=== PATIENT | male | born 1945 | race African-American/Black ===

== ENCOUNTER 2017-05-21 18:10 | Inpatient (IN) | payer MEDICARE, OTHER ==
[~2017-05-21 18:10] MED LIST: ALLO100 PO; AMLO10 PO; ATOR80TA PO; CLON.2 PO; DOCU1CAP39 PO; DORZ1SOL2 EACH EYE; DUONI NEB; FOLI1 PO; FURO1TAB93 PO; GABA600T PO; GLUCTAB PO; IPRA0.02 NEB; KCL20 PO; LATA.005%O OU; LISI-363 PO; MAGN400T PO; METO100T9 PO; NIFE1TAB86 PO; OMEP20TA39 PO; PSYL1POW7 PO; TERA2CAP3 PO; VITA-13 PO; VITA100020 SL; WARF7.5T4 PO; ZINC TOP
[2017-05-21 18:25] VITALS: BP 168/68; PULSE 98; RESP 16; TEMP 98.8; O2SAT 96
[2017-05-21] MEDS ORDERED: SODIUM CHLORIDE 0.9% FLUSH 10 ML FLUSH IVF PRN ×2 (18:45→21:00)
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
[2017-05-21] MEDS ORDERED: POTA10CA PO (19:02)
[2017-05-21] MEDS ORDERED: DORZ2SOL15 EACH EYE (19:02)
[2017-05-21] MEDS ORDERED: ALLO100T PO (19:02)
[2017-05-21] MEDS ORDERED: WARF-23 PO (19:02)
[2017-05-21] MEDS ORDERED: LISI-515 PO (19:02)
[2017-05-21] MEDS ORDERED: GABA600T PO (19:02)
[2017-05-21] MEDS ORDERED: FOLI400T PO (19:02)
[2017-05-21] MEDS ORDERED: WARF-21 PO (19:02)
[2017-05-21] MEDS ORDERED: AMLO5TAB2 PO (19:02)
[2017-05-21] MEDS ORDERED: METF500T4 PO (19:02)
[2017-05-21] MEDS ORDERED: IPRASOL INH (19:02)
[2017-05-21] MEDS ORDERED: CYAN100025 SL (19:02)
[2017-05-21] MEDS ORDERED: MAGN400T2 PO ×2 (19:02)
[2017-05-21] MEDS ORDERED: LATA0.002 EACH EYE (19:02)
[2017-05-21] MEDS ORDERED: FURO40TA PO (19:02)
[2017-05-21] MEDS ORDERED: TERA2CAP3 PO (19:02)
[2017-05-21] MEDS ORDERED: OMEP20TA PO (19:02)
[2017-05-21] MEDS ORDERED: METO50TA11 PO (19:02)
[2017-05-21] MEDS ORDERED: CLON0.2T PO (19:02)
[2017-05-21] MEDS ORDERED: METF-382 PO (19:02)
[2017-05-21] MEDS ORDERED: ATOR1TAB18 PO (19:02)
[2017-05-21 19:06] LABS: MEAN CELL VOLUME 116.6 FL (80.0-100.0); MEAN CORPUSCULAR HEMOGLOBIN 36.3 PG (27.0-34.0); MEAN CORPUSCULAR HGB CONC 31.1 % (32.0-36.0); PLATELET COUNT 133 TH/MM3 (150-450); RED BLOOD COUNT 2.23 MIL/MM3 (4.50-5.90); RED CELL DISTRIBUTION WIDTH 17.7 % (11.6-17.2)
--- NOTE | 2017-05-21 19:06 | RADRPT ---
EXAM DATE/TIME: 05/21/2017 18:57 [facility] COMPARISON: CHEST SINGLE AP, May 23, 2015, 10:43. INDICATIONS : Chest pain today. MEDICAL HISTORY : Hypertension. Chronic obstructive pulmonary disease. Crohn's disease. CVA/ Diabetes. Afib. SURGICAL HISTORY : Aortic valve replacment. AICD. ENCOUNTER: Initial ACUITY: 1 day PAIN SCORE: 7/10 LOCATION: Bilateral chest FINDINGS: The patient is status post sternotomy. There is a bilead pacing device in place from the left subclav santana approach. The heart size is normal. The lungs are grossly clear. CONCLUSION: No acute disease. Tawanda Cordero MD on May 21, 2017 at 19:04 Board Certified Radiologist. This report was verified electronically.
--- NOTE | 2017-05-21 19:08 | PD ---
Physical Exam Date Seen by Provider: May 21, 2017 Time Seen by Provider: 19:06 Narrative Accepted in transfer of care from Dr. Perry GENERAL: Well-developed well-nourished male in no acute distress no respiratory distress's SKIN: Warm and dry. HEAD: Normocephalic. EYES: No scleral icterus. No injection or drainage. NECK: Supple, trachea midline. No JVD or lymphadenopathy. CARDIOVASCULAR: Regular rate and rhythm without murmurs, gallops, or rubs; mechanical click c/w valve replacement. RESPIRATORY: Breath sounds equal bilaterally. No accessory muscle use. GASTROINTESTINAL: Abdomen soft, non-tender, nondistended. MUSCULOSKELETAL: No cyanosis, or edema. Bilateral AKA. BACK: Nontender without obvious deformity. No CVA tenderness. Data Data Last Documented VS Vital Signs Date Time Temp Pulse Resp B/P (MAP) Pulse Ox O2 Delivery O2 Flow Rate FiO2 05/21/17 19:35 88 18 163/56 (91) 95 Room Air 05/21/17 18:25 98.8 Orders Orders Electrocardiogram (05/21/17 18:43) Ckmb (Isoenzyme) Profile (05/21/17 18:43) Complete Blood Count With Diff (05/21/17 18:43) Comprehensive Metabolic Panel (05/21/17 18:43) Magnesium (Mg) (05/21/17 18:43) Prothrombin Time / Inr (Pt) (05/21/17 18:43) Act Partial Throm Time (Ptt) (05/21/17 18:43) Troponin I (05/21/17 18:43) Lipase (05/21/17 18:43) Chest, Single Ap (05/21/17 18:43) Ecg Monitoring (05/21/17 18:43) Bilateral Bp Monitoring (05/21/17 18:43) Iv Access Insert/Monitor (05/21/17 18:43) Oximetry (05/21/17 18:43) Oxygen Administration (05/21/17 18:43) Sodium Chloride 0.9% Flush (Ns Flush) (05/21/17 18:45) CKMB (05/21/17 18:40) CKMB% (05/21/17 18:40) Place In Observation (05/21/17 20:44) Activity Bed Rest With Brp (05/21/17 20:44) Vital Signs (Adult) Q4H (05/21/17 20:44) Cardiac Rhythm .As Directed (05/21/17 20:44) Notify Dr: Other .PRN (05/21/17 20:44) Notify Parameters (05/21/17 20:44) Resp Oxygen Nasal Cannula (05/21/17 ) Ckmb (Isoenzyme) Profile (05/21/17 21:40) Ckmb (Isoenzyme) Profile (05/22/17 00:40) Troponin I (05/21/17 21:40) Troponin I (05/22/17 00:40) Electrocardiogram (05/21/17 21:40) Electrocardiogram (05/22/17 00:40) ^ Obtain (05/21/17 20:44) Sodium Chloride 0.9% Flush (Ns Flush) (05/21/17 20:45) Sodium Chloride 0.9% Flush (Ns Flush) (05/21/17 21:00) Cinder Block Maker / Telemetry LILLIAN.Q8H (05/21/17 20:44) Admit Order (Ed Use Only) (05/21/17 ) ^ Saline Lock (05/21/17 20:47) Resp Oxygen Idris C Titrat 1-4 L (05/21/17 ) Notify Dr: Other (05/21/17 20:47) Npo After Midnight W/ Po Meds (05/22/17 Breakfast) Diet 1800 Ada Cons Carb (05/21/17 Dinner) CKMB (05/21/17 21:50) CKMB% (05/21/17 21:50) Labs Laboratory Tests Test 05/21/17 18:40 White Blood Count 3.3 TH/MM3 Red Blood Count 2.23 MIL/MM3 Hemoglobin 8.1 GM/DL Hematocrit 26.0 % Mean Corpuscular Volume 116.6 FL Mean Corpuscular Hemoglobin 36.3 PG Mean Corpuscular Hemoglobin Concent 31.1 % Red Cell Distribution Width 17.7 % Platelet Count 133 TH/MM3 Mean Platelet Volume 8.9 FL CBC Comment AUTO DIFF Differential Total Cells Counted 100 Neutrophils % (Manual) 46 % Band Neutrophils % 1 % Lymphocytes % 35 % Monocytes % 17 % Eosinophils % 1 % Neutrophils # (Manual) 1.6 TH/MM3 Differential Comment FINAL DIFF MANUAL Platelet Estimate LOW Platelet Morphology Comment NORMAL Ovalocytes 1+ Prothrombin Time 38.9 SEC Prothromb Time International Ratio 3.3 RATIO Activated Partial Thromboplast Time 46.7 SEC Blood Urea Nitrogen 37 MG/DL Creatinine 1.20 MG/DL Random Glucose 137 MG/DL Total Protein 7.8 GM/DL Albumin 3.6 GM/DL Calcium Level 8.4 MG/DL Magnesium Level 1.8 MG/DL Alkaline Phosphatase 123 U/L Aspartate Amino Transf (AST/SGOT) 20 U/L Alanine Aminotransferase (ALT/SGPT) 22 U/L Total Bilirubin 0.4 MG/DL Sodium Level 140 MEQ/L Potassium Level 4.0 MEQ/L Chloride Level 108 MEQ/L Carbon Dioxide Level 22.4 MEQ/L Anion Gap 10 MEQ/L Estimat Glomerular Filtration Rate 72 ML/MIN Total Creatine Kinase 235 U/L Creatine Kinase MB 1.6 NG/ML Troponin I 0.02 NG/ML Lipase 342 U/L [facility] Medical Record Reviewed: Yes Supervised Visit with JANETT: No Interpretation(s) Troponin I: 0.02, not elevated; CK: 235, not elevated; MB% 0.6% not elevated INR: 3.3 Last Impressions Chest X-Ray 05/21/17 1843 Signed Impressions: Service Date/Time: Sunday, May 21, 2017 18:57 - CONCLUSION: No acute disease. Tawanda Cordero MD CBC & BMP Diagram 05/21/17 18:40 Total Protein 7.8, Albumin 3.6, Calcium Level 8.4 L, Magnesium Level 1.8, Alkaline Phosphatase 123 H, Aspartate Amino Transf (AST/SGOT) 20, Alanine Aminotransferase (ALT/SGPT) 22, Total Bilirubin 0.4 Vital Signs Date Time Temp Pulse Resp B/P (MAP) Pulse Ox O2 Delivery O2 Flow Rate FiO2 05/21/17 18:36 95 Room Air 05/21/17 18:25 98.8 98 16 168/68 (995) 96 Differential Diagnosis Accepted in transfer of care from Dr. Perry; please refer to his dictation Narrative Course Accepted in transfer of care from Dr Perry; follow up on pending labs and plan disposition to [facility] Patient remains asymptomatic Cardiac enzymes found to be in normal range EKG non-specific ST changes and bundle branch block no acute ST elevation Pancytopenia values found to be consistent with prior comparison values on previous admissions and evaluations Patient agreeable with admission Discussed with [facility] MD for admission Physician Communication Physician Communication discussed with and accepted for [facility] by Dr Alegre Diagnosis Primary Impression: Chest pain Qualified Codes: R07.9 - Chest pain, unspecified Additional Impression: Pancytopenia Admitting Information Admitting Physician Requests: Observation Condition: Stable Leyla Porter MD May 21, 2017 19:08
[2017-05-21 19:10] VITALS: BP_SYST 159; BP_SYST 169; BP_DIAS 56; BP_DIAS 58; PULSE 85; RESP 1; O2SAT 96
[2017-05-21 19:11] LABS: HEMO FLAGS AUTO DIFF
[2017-05-21 19:15] LABS: CHLORIDE 108 MEQ/L (98-107); SODIUM (NA) 140 MEQ/L (136-145)
[2017-05-21 19:19] LABS: ANION GAP 10 MEQ/L (5-15); APTT (PATIENT) 46.7 SEC (24.3-30.1); BICARBONATE 22.4 MEQ/L (21.0-32.0); BLOOD UREA NITROGEN 37 MG/DL (7-18); INTERNATIONAL NORMALIZED RATIO 3.3 RATIO; MAGNESIUM 1.8 MG/DL (1.5-2.5); PROTHROMBIN TIME - PATIENT 38.9 SEC (9.8-11.6)
[2017-05-21 19:21] LABS: ALT (GPT) 22 U/L (12-78); AST (GOT) 20 U/L (15-37)
[2017-05-21 19:22] LABS: GLOMERULAR FILTRATION RATE 72 ML/MIN (>89)
[2017-05-21 19:23] LABS: TOTAL BILIRUBIN ADULT 0.4 MG/DL (0.2-1.0)
[2017-05-21 19:24] LABS: ALKALINE PHOSPHATASE 123 U/L (45-117); CREATINE KINASE 235 U/L (39-308)
[2017-05-21 19:35] VITALS: BP 163/56; PULSE 88; RESP 18; O2SAT 95
[2017-05-21 19:36] LABS: CKMB 1.6 NG/ML (0.5-3.6)
[2017-05-21] MEDS ORDERED: VITA100064 PO (19:54)
[2017-05-21 20:11] LABS: BANDS 1 % (0-6); EOSINOPHILS 1 % (0-4); POLYS (SEG NEUTROPHILS) 46 % (16-70); WBC DIFF SAMPLE 100
[2017-05-21 20:13] LABS: OVALOCYTES 1+ (NORMAL)
[2017-05-21 20:14] LABS: SCAN/DIFF FINAL DIFF MANUAL
[2017-05-21 20:15] LABS: NEUTROPHIL # MANUAL DIFF 1.6 TH/MM3 (1.8-7.7); PLATELET ESTIMATE SMEAR LOW (NORMAL); PLATELET MORPHOLOGY NORMAL (NORMAL); WHITE BLOOD COUNT 3.3 TH/MM3 (4.0-11.0)
[2017-05-21] MEDS ORDERED: SODIUM CHLORIDE 0.9% FLUSH 10 ML FLUSH IV FLUSH PRN (20:45)
[2017-05-21] MEDS ORDERED: SODIUM CHLORIDE 0.9% FLUSH 10 ML FLUSH IV FLUSH SCH (21:00)
[2017-05-21] MEDS: SODIUM CHLORIDE 0.9% FLUSH 10 ML FLUSH IV FLUSH SCH (21:00)
[2017-05-21 21:41] VITALS: BP 175/76; PULSE 85; RESP 16; O2SAT 95
[2017-05-21 22:41] LABS: CREATINE KINASE 225 U/L (39-308)
[2017-05-21 22:53] LABS: CKMB 2.6 NG/ML (0.5-3.6)
[2017-05-21 22:59] VITALS: O2SAT 95
[2017-05-22] VITALS (10 sets, daily range): BP systolic 137–194; BP diastolic 57–78; PULSE 68–86; RESP 16–18; TEMP 98.1–98.7; O2SAT 96–98
[2017-05-22 01:27] LABS: CREATINE KINASE 222 U/L (39-308)
[2017-05-22 01:39] LABS: CKMB 3.8 NG/ML (0.5-3.6)
[2017-05-22] MEDS: SODIUM CHLORIDE 0.9% FLUSH 10 ML FLUSH IV FLUSH SCH ×2 (09:00→21:00)
--- NOTE | 2017-05-22 11:09 | HHI.HP ---
[facility] Admission Diagnosis chest pain; h/o chronic pancytopenia Diagnoses: (1) Non-ST elevated myocardial infarction Diagnosis: Principal (2) Chest pain Diagnosis: Principal Chief Complaint: Chest pain Travel History International Travel<30 Days: No Contact w/Intl Traveler <30 Da: No Traveled to Known Affected Are: No History of Present Illness Written by Andrea Marmolejo, acting as scribe for Dr. Chowdary on 05/22/17 at 11: 13. 71-year-old male with known history of hypertension, cardiomyopathy, diabetes, peripheral vascular disease, chronic systolic congestive heart failure, coronary artery disease, chronic obstructive pulmonary disease, status post aortic valve replacement, pancytopenia, CVA, TIA, who presented to the hospital because of chest pain. Patient states that his chest pain started 2 days ago. It happens mainly when he is lying in bed. He describes it as a constant throbbing type pain that last for 10-15 minutes and resolved on its own. Patient states that episode 2 days ago and then another one yesterday when he was lying in bed. He had associated diaphoresis, denies any nausea, vomiting, once of breath, dyspnea. Because of the pain came back he decided come to emergency department for evaluation. Patient had evaluation done initially had negative workup. It was recommended that the patient be observed in the hospital for further evaluation. However, during continued evaluation he had acute elevation of troponins which are continuing to rise. Records here indicate the patient has had a nuclear stress test done in 2014 which was normal. Patient does have significant risk factors with cardiomyopathy, coronary artery disease, AICD placement, diabetes. Patient high risk for significant coronary event. Cardiology will be consulted for further evaluation and management. Review of Systems Constitutional: COMPLAINS OF: Diaphoretic episodes Cardiovascular: COMPLAINS OF: Chest pain Except as stated in HPI: all other systems reviewed are Neg Past Family Social History Past Medical History Hypertension Hyperlipidemia Coronary artery disease Chronic systolic congestive heart failure Cardiomyopathy, echo 05/24/15 shows ejection fraction 50-55%, nuclear stress test with ejection fraction 62% Peripheral vascular disease Chronic obstructive pulmonary disease Diabetic retinopathy Chronic pancytopenia History CVA History TIA Benign prostatic hypertrophy History of severe aortic stenosis Past Surgical History AICD placement Prosthetic aortic valve replacement Ascending aortic endarterectomy Bilateral [id number] amputations Abdominal surgeries, unknown what was done per patient Reported Medications Reported Meds & Active Scripts Active Reported Vitamin D3 (Cholecalciferol) 1,000 Unit Tab 1,000 Units PO BID Warfarin 5 Mg Tab 5 Mg PO DAILY Warfarin 7.5 Mg Tab 7.5 Mg PO DAILY Terazosin (Terazosin HCl) 2 Mg Cap 2 Mg PO HS Potassium Chloride ER (Potassium Chloride) 10 Meq Cap 10 Meq PO DAILY Omeprazole 20 Mg Tab 20 Mg PO DAILY Metoprolol Succinate ER 24 HR (Metoprolol Succinate) 50 Mg Tab 50 Mg PO DAILY Metformin ER (Metformin HCl) 500 Mg Leola 500 Mg PO HS With evening meal Metformin ER (Metformin HCl) 1,000 Mg Leola 1,000 Mg PO DAILY With evening meal Magnesium Oxide 400 Mg Tab 800 Mg PO HS Magnesium Oxide 400 Mg Tab 400 Mg PO DAILY Lisinopril 20 Mg Tab 20 Mg PO DAILY Latanoprost Opth Drops (Latanoprost) 0.005% Drops 1 Drop EACH EYE HS Refrigerate until opened. Duoneb (Ipratropium-Albuterol Neb) 0.5-2.5 Mg/3 Ml Neb 1 Nebule INH Q4HR NEB PRN Gabapentin 600 Mg Tab 600 Mg PO TID Furosemide 40 Mg Tab 40 Mg PO DAILY Folic Acid 0.4 Mg Tab 1,000 Mcg PO DAILY Dorzolamide-Timolol Opth Drops 22.3-6.8 Mg/Ml Soln 1 Drop EACH EYE BID B-12 (Cyanocobalamin) 1,000 Mcg Subl 1,000 Mcg SL DAILY Clonidine (Clonidine HCl) 0.2 Mg Tab 0.2 Mg PO HS Atorvastatin (Atorvastatin Calcium) 80 Mg Tab 80 Mg PO HS Amlodipine (Amlodipine Besylate) 5 Mg Tab 5 Mg PO DAILY Allopurinol 100 Mg Tab 100 Mg PO DAILY Allergies: Coded Allergies: No Known Allergies (Verified , 04/19/15) Family History Family history is reviewed with the patient and patient states that mother had heart disease. Social History Patient quit smoking and drinking in 1982. Denies any illicit drugs Physical Exam Vital Signs Vital Signs Date Time Temp Pulse Resp B/P (MAP) Pulse Ox O2 Delivery O2 Flow Rate FiO2 05/22/17 09:23 72 16 170/64 (99) 98 Room Air 05/22/17 04:28 75 18 139/57 (84) 98 Room Air 05/22/17 00:35 98.6 86 16 150/69 (96) 97 Room Air 05/21/17 22:59 95 21 05/21/17 21:41 85 16 175/76 (109) 95 Room Air 05/21/17 21:20 Room Air 05/21/17 19:35 88 18 163/56 (91) 95 Room Air 05/21/17 19:10 85 1 169/58 (95) 96 Room Air 159/56 (90) 05/21/17 19:10 Room Air 05/21/17 19:10 Room Air 05/21/17 18:36 95 Room Air 05/21/17 18:25 98.8 98 16 168/68 (101) 96 Physical Exam GENERAL: Well-developed, well-nourished, in no acute distress. alert and orientated HEENT: Head is normocephalic without any lesions or masses noted. Facial features are symmetric. Eyes: Pupils equal round reactive to light. Extraocular muscles are intact. Conjunctivae were clear. Oropharyngeal: Pharynx without any erythema edema. Tongue is midline without deviation. Buccal mucosa is moist without any masses or lesions NECK: Supple without any masses. Trachea midline no deviation. No JVD, no bruits are appreciated CARDIAC: Regular rhythm, regular rate. S1/S2 are heard. No murmurs gallops or rubs. LUNGS: Clear to auscultation bilaterally. No wheeze, rhonchi or rales. No use of accessory muscles on inspiration or expiration. ABDOMEN: Soft, nontender. Nondistended. Bowel sounds heard in all 4 quadrants. No organomegaly or masses. Negative rebound, negative guarding EXTREMITIES: Bilateral [id number] amputations NEUROLOGY: Mood and affect appear appropriate. Cranial nerves II through XII grossly intact. Muscle strength 5/5 in upper and lower extremities bilaterally. Deep tendon reflexes are 2+ in upper and lower extremities bilaterally. Laboratory Laboratory Tests Test 05/21/17 18:40 05/21/17 21:50 05/22/17 00:54 White Blood Count 3.3 Red Blood Count 2.23 Hemoglobin 8.1 Hematocrit 26.0 Mean Corpuscular Volume 116.6 Mean Corpuscular Hemoglobin 36.3 Mean Corpuscular Hemoglobin Concent 31.1 Red Cell Distribution Width 17.7 Platelet Count 133 Mean Platelet Volume 8.9 CBC Comment AUTO DIFF Differential Total Cells Counted 100 Neutrophils % (Manual) 46 Band Neutrophils % 1 Lymphocytes % 35 Monocytes % 17 Eosinophils % 1 Neutrophils # (Manual) 1.6 Differential Comment FINAL DIFF MANUAL Platelet Estimate LOW Platelet Morphology Comment NORMAL Ovalocytes 1+ Prothrombin Time 38.9 Prothromb Time International Ratio 3.3 Activated Partial Thromboplast Time 46.7 Blood Urea Nitrogen 37 Creatinine 1.20 Random Glucose 137 Total Protein 7.8 Albumin 3.6 Calcium Level 8.4 Magnesium Level 1.8 Alkaline Phosphatase 123 Aspartate Amino Transf (AST/SGOT) 20 Alanine Aminotransferase (ALT/SGPT) 22 Total Bilirubin 0.4 Sodium Level 140 Potassium Level 4.0 Chloride Level 108 Carbon Dioxide Level 22.4 Anion Gap 10 Estimat Glomerular Filtration Rate 72 Total Creatine Kinase 235 225 222 Creatine Kinase MB 1.6 2.6 3.8 Troponin I 0.02 0.12 0.24 Lipase 342 Result Diagram: 05/21/17183905/21/171839 Imaging Last Impressions Chest X-Ray 05/21/171842 Signed Impressions: Service Date/Time: Sunday, May 21, 2017 18:57 - CONCLUSION: No acute disease. MD Sarah Bynum VTE Risk Assessment Sarah VTE Risk Assessment: Mod/High Risk (score >= 2) VTE [facility] Contraindication: Bilateral amputee Urvashii Risk Assessment Model Point Value = 1 Point Value = 2 Point Value = 3 Point Value = 5 Age 41-60 Minor surgery BMI > 25 kg/m2 Swollen legs Varicose veins or History of unexplained or recurrent spontaneous Oral contraceptives or hormone replacement Sepsis (< 1 month) Serious lung disease, including pneumonia (< 1 month) Abnormal pulmonary function Acute myocardial infarction Congestive heart failure (< 1 month) History of inflammatory bowel disease Medical patient at bed rest Age 61-74 Arthroscopic surgery Major open surgery (> 45 min) Laparoscopic surgery (> 45 min) Malignancy Confined to bed (> 72 hours) Immobilizing plaster cast Central venous access Age >= 75 History of VTE Family history of VTE Factor V Leiden Prothrombin [id number] Lupus anticoagulant Anticardiolipin antibodies Elevated serum homocysteine Heparin-induced thrombocytopenia Other congenital or acquired thrombophilia Stroke (< 1 month) Elective arthroplasty Hip, pelvis, or leg fracture Acute spinal cord injury (< 1 month) Prophylaxis Regimen Total Risk Factor Score Risk Level Prophylaxis Regimen 0-1 Low Early ambulation 2 Moderate Order ONE of the following: *Sequential Compression Device (SCD) *Heparin 5000 units SQ BID 3-4 Higher Order ONE of the following medications: *Heparin 5000 units SQ TID *Enoxaparin/Lovenox 40 mg SQ daily (WT < 150 kg, CrCl > 30 mL/min) *Enoxaparin/Lovenox 30 mg SQ daily (WT < 150 kg, CrCl > 10-29 mL/min) *Enoxaparin/Lovenox 30 mg SQ BID (WT < 150 kg, CrCl > 30 mL/min) AND/OR *Sequential Compression Device (SCD) 5 or more Highest Order ONE of the following medications: *Heparin 5000 units SQ TID (Preferred with Epidurals) *Enoxaparin/Lovenox 40 mg SQ daily (WT < 150 kg, CrCl > 30 mL/min) *Enoxaparin/Lovenox 30 mg SQ daily (WT < 150 kg, CrCl > 10-29 mL/min) *Enoxaparin/Lovenox 30 mg SQ BID (WT < 150 kg, CrCl > 30 mL/min) AND *Sequential Compression Device (SCD) Assessment and Plan Assessment and Plan Chest pain with elevated troponin, non-ST elevated myocardial infarction Continue to trend cardiac enzymes and EKGs Consulted cardiology for further recommendations Patient continued on beta cindy, BUDDY inhibitor, statin, Norvasc, Aspirin and anticoagulation deferred to guest request runner, patient is anticoagulated with Coumadin with INR 3.3 Diabetes Accu-Cheks with sliding scale insulin Hypertension, hyperlipidemia, coronary artery disease, cardiomyopathy, history of CVA, history TIA, peripheral*disease Home medications have been continued Chronic obstructive pulmonary disease neck sign continue O2 supplementation maintain O2 sats greater 92% Duo nebs as needed DVT prevention Patient is on Coumadin, INR 3.3 This note was transcribed by brianna [Andrea Marmolejo]. I, Dr. Summer Chowdary personally performed the history, physical exam, and medical decision making; and confirmed the accuracy of the information in the transcribed note. Authenticated by Dr. Summer Chowdary on 05/22/17 at 11:15. Physician Certification 2 Midnight Certification Type: Admission for Inpatient Services Order for Inpatient Services The services are ordered in accordance with Medicare regulations or non- Medicare payer requirements, as applicable. In the case of services not specified as inpatient-only, they are appropriately provided as inpatient services in accordance with the 2-midnight benchmark. Estimated LOS (days): 2 days is the estimated time the patient will need to remain in the hospital, assuming treatment plan goals are met and no additional complications. Post-Hospital Plan: Not yet determined Problem Qualifiers (1) Chest pain: Qualified Codes: R07.9 - Chest pain, unspecified Andrea Marmolejo May 22, 2017 11:08 Summer Chowdary MD May 22, 2017 11:12
[2017-05-22] MEDS ORDERED: GLUCAGON 1 MG/ML VIAL OTHER PRN ×2 (11:15)
[2017-05-22] MEDS ORDERED: DEXTROSE 50% IN WATER 50 ML VIAL(D50) IV PRN ×2 (11:15)
[2017-05-22] MEDS ORDERED: RESP: ALBUTEROL 2.5 MG/IPRATROPIUM 0.5 MG NEB (PRN) NEB (11:30)
[2017-05-22] MEDS: FUROSEMIDE 40 MG TAB PO SCH (13:26)
[2017-05-22] MEDS: LISINOPRIL 20 MG TAB PO SCH (13:26)
[2017-05-22] MEDS: amLODIPine BESYLATE 5 MG TAB PO SCH (13:26)
[2017-05-22] MEDS: GABAPENTIN 300 MG CAP PO SCH ×2 (13:26→18:40)
[2017-05-22] MEDS: METOPROLOL SUCCINATE 50 MG EXTENDED RELEASE TAB PO SCH (13:26)
--- NOTE | 2017-05-22 13:48 | EKG ---
Date Performed: 05/21/2017 Time Performed: 18:18:42 PTAGE: 71 years EKG: SINUS TACHYCARDIA ARM LEADS REVERSED ABNORMAL RHYTHM ECG INTERPRETATION BASED ON A DEFAULT AGE OF 40 YEARS Left bundle branch block PREVIOUS TRACING 05/23/15 Since the prior tracing, the patient has developed left bundle branch block, but probably no other serial change, when allowing for the limb lead reversal. Clinical correlation advised to assess the new left bundle branch block. DOCTOR: Linda Couch Interpretating Date/Time 05/22/2017 13:46:19
--- NOTE | 2017-05-22 13:53 | EKG ---
Date Performed: 05/22/2017 Time Performed: 02:25:28 PTAGE: 71 years EKG: Sinus rhythm LEFT BUNDLE BRANCH BLOCK ABNORMAL ECG Compared to prior tracing no significant change PREVIOUS TRACING : 05/21/2017 21.56 DOCTOR: Linda Couch Interpretating Date/Time 05/22/2017 13:51:31
--- NOTE | 2017-05-22 13:53 | EKG ---
Date Performed: 05/21/2017 Time Performed: 21:56:15 PTAGE: 71 years EKG: Sinus rhythm LEFT BUNDLE BRANCH BLOCK ABNORMAL ECG Compared to prior tracing no significant change PREVIOUS TRACING : 05/21/2017 18.18 DOCTOR: Linda Couch Interpretating Date/Time 05/22/2017 13:51:24
[2017-05-22] MEDS ORDERED: PHYTONADIONE INJ 1 MG/0.5 ML AMP SQ ONE (15:45)
[2017-05-22] MEDS ORDERED: DIAZEPAM 10 MG TAB PO SCH (15:45)
[2017-05-22] MEDS ORDERED: ASPIRIN 325 MG TAB PO SCH (15:45)
[2017-05-22] MEDS ORDERED: diphenhydrAMINE HCL 50 MG CAP PO SCH (15:45)
[2017-05-22] MEDS: INSULIN ASPART SUPPLEMENTAL SCALE SQ SCH ×2 (16:00→21:00)
[2017-05-22] MEDS ORDERED: INSULIN ASPART SUPPLEMENTAL SCALE SQ SCH (16:00)
[2017-05-22] MEDS: SODIUM CHLOR 0.9% 1000 ML INJ 1,000 ML IV SCH (16:26)
[2017-05-22] MEDS ORDERED: LATANOPROST 0.005% OPHT SOLN 2.5 ML BTL EACH EYE SCH (21:00)
[2017-05-22] MEDS ORDERED: ATORVASTATIN 40 MG TAB PO SCH (21:00)
[2017-05-22] MEDS ORDERED: TERAZOSIN HCL 1 MG CAP PO SCH (21:00)
[2017-05-22] MEDS ORDERED: cloNIDine HCL 0.2 MG TAB PO SCH (21:00)
[2017-05-22] MEDS: DORZOLAMIDE/TIMOLOL OPTH SOLN 10 ML BTL EACH EYE SCH (21:00)
[2017-05-22] MEDS ORDERED: MAGNESIUM OXIDE 400 MG TAB PO SCH (21:00)
--- NOTE | 2017-05-22 23:12 | PD.CONS ---
HPI Service Consult dictated ~12 hours ago, still not transcribed. Recommend cath in am. Consult Requested By Primary Care Physician [facility] Past Family Social History Allergies: Coded Allergies: No Known Allergies (Verified , 04/19/15) Reported Medications Reported Meds & Active Scripts Active Reported Vitamin D3 (Cholecalciferol) 1,000 Unit Tab 1,000 Units PO BID Warfarin 5 Mg Tab 5 Mg PO DAILY Warfarin 7.5 Mg Tab 7.5 Mg PO DAILY Terazosin (Terazosin HCl) 2 Mg Cap 2 Mg PO HS Potassium Chloride ER (Potassium Chloride) 10 Meq Cap 10 Meq PO DAILY Omeprazole 20 Mg Tab 20 Mg PO DAILY Metoprolol Succinate ER 24 HR (Metoprolol Succinate) 50 Mg Tab 50 Mg PO DAILY Metformin ER (Metformin HCl) 500 Mg Leola 500 Mg PO HS With evening meal Metformin ER (Metformin HCl) 1,000 Mg Leola 1,000 Mg PO DAILY With evening meal Magnesium Oxide 400 Mg Tab 800 Mg PO HS Magnesium Oxide 400 Mg Tab 400 Mg PO DAILY Lisinopril 20 Mg Tab 20 Mg PO DAILY Latanoprost Opth Drops (Latanoprost) 0.005% Drops 1 Drop EACH EYE HS Refrigerate until opened. Duoneb (Ipratropium-Albuterol Neb) 0.5-2.5 Mg/3 Ml Neb 1 Nebule INH Q4HR NEB PRN Gabapentin 600 Mg Tab 600 Mg PO TID Furosemide 40 Mg Tab 40 Mg PO DAILY Folic Acid 0.4 Mg Tab 1,000 Mcg PO DAILY Dorzolamide-Timolol Opth Drops 22.3-6.8 Mg/Ml Soln 1 Drop EACH EYE BID B-12 (Cyanocobalamin) 1,000 Mcg Subl 1,000 Mcg SL DAILY Clonidine (Clonidine HCl) 0.2 Mg Tab 0.2 Mg PO HS Atorvastatin (Atorvastatin Calcium) 80 Mg Tab 80 Mg PO HS Amlodipine (Amlodipine Besylate) 5 Mg Tab 5 Mg PO DAILY Allopurinol 100 Mg Tab 100 Mg PO DAILY Active Ordered Medications Current Medications Medications (Trade) Dose Ordered Sig/Gaetano Route Start Time Stop Time Status Last Admin (NS Flush) 2 ml UNSCH PRN IV FLUSH 05/21/17 20:45 (NS Flush) 2 ml BID IV FLUSH 05/21/17 21:00 05/22/17 09:00 (Zyloprim) 100 mg DAILY PO 05/23/17 09:00 (Norvasc) 5 mg DAILY PO 05/22/17 11:15 05/22/17 13:26 (Lipitor) 80 mg HS PO 05/22/17 21:00 05/22/17 21:53 (Catapres) 0.2 mg HS PO 05/22/17 21:00 05/22/17 21:53 (Cosopt 2-0.5% Opth Soln) 1 drop BID EACH EYE 05/22/17 21:00 05/22/17 21:00 (Lasix) 40 mg DAILY PO 05/22/17 11:15 05/22/17 13:26 (Neurontin) 600 mg TID PO 05/22/17 13:00 05/22/17 18:40 (Duoneb Neb) 1 ampule Q4HR NEB PRN NEB 05/22/17 11:30 (Xalatan 0.005% Opth Soln) 1 drop HS EACH EYE 05/22/17 21:00 05/22/17 21:00 (Prinivil) 20 mg DAILY PO 05/22/17 11:15 05/22/17 13:26 (Mag-Ox) 400 mg DAILY PO 05/23/17 09:00 (Mag-Ox) 800 mg HS PO 05/22/17 21:00 05/22/17 21:52 (Toprol Xl) 50 mg DAILY PO 05/22/17 11:15 05/22/17 13:26 (KCl) 10 meq DAILY PO 05/23/17 09:00 (Hytrin) 2 mg HS PO 05/22/17 21:00 05/22/17 21:53 (Coumadin) 5 mg DAILY@1600 PO 05/23/17 16:00 (Protonix) 20 mg DAILY PO 05/23/17 09:00 (D50w (Vial) Inj) 50 ml UNSCH PRN IV 05/22/17 11:15 (Glucagon Inj) 1 mg UNSCH PRN OTHER 05/22/17 11:15 (NovoLOG SUPPLEMENTAL SCALE) 1 ACHS SLIDING SCALE SQ 05/22/17 16:00 Sodium Chloride 1,000 ml @ 100 mls/hr Q10H IV 05/22/17 15:37 05/27/17 15:36 05/22/17 16:26 (Aspirin) 325 mg OFFSHORE DIVER PO 05/22/17 15:45 05/26/17 15:44 (Benadryl) 50 mg OFFSHORE DIVER PO 05/22/17 15:45 05/26/17 15:44 (Valium) 10 mg OFFSHORE DIVER PO 05/22/17 15:45 05/26/17 15:44 Physical Exam Vital Signs Vital Signs Date Time Temp Pulse Resp B/P (MAP) Pulse Ox O2 Delivery O2 Flow Rate FiO2 05/22/17 22:18 96 05/22/17 19:45 98.2 68 18 194/78 (116) 96 05/22/17 18:55 69 05/22/17 15:02 98.4 73 16 150/60 (90) 96 05/22/17 12:30 98.1 70 16 186/74 (111) 98 05/22/17 11:32 05/22/17 09:23 72 16 170/64 (99) 98 Room Air 05/22/17 04:28 75 18 139/57 (84) 98 Room Air 05/22/17 00:35 98.6 86 16 150/69 (96) 97 Room Air Laboratory Laboratory Tests Test 05/22/17 00:54 Total Creatine Kinase 222 Creatine Kinase MB 3.8 Troponin I 0.24 Result Diagram: 05/21/17183905/21/171839 Nicho Bonds MD May 22, 2017 23:12
[2017-05-23] MEDS: SODIUM CHLOR 0.9% 1000 ML INJ 1,000 ML IV SCH (02:32)
[2017-05-23 03:39] VITALS: BP 121/49; PULSE 61; RESP 20; TEMP 98.6; O2SAT 97
[2017-05-23 07:43] VITALS: BP 157/87; PULSE 65; RESP 18; TEMP 97.7; O2SAT 97
[2017-05-23] MEDS: INSULIN ASPART SUPPLEMENTAL SCALE SQ SCH (08:00)
[2017-05-23] MEDS ORDERED: PANTOPRAZOLE SOD 20 MG DELAYED RELEASE TAB PO SCH (09:00)
[2017-05-23] MEDS ORDERED: MAGNESIUM OXIDE 400 MG TAB PO SCH (09:00)
[2017-05-23] MEDS ORDERED: POTASSIUM CHLORIDE 10 MEQ CONTROLLED RELEASE TAB PO SCH (09:00)
[2017-05-23] MEDS ORDERED: ALLOPURINOL 100 MG TAB PO SCH (09:00)
[2017-05-23 09:20] VITALS: PULSE 62
[2017-05-23] MEDS: METOPROLOL SUCCINATE 50 MG EXTENDED RELEASE TAB PO SCH (09:21)
[2017-05-23] MEDS: SODIUM CHLORIDE 0.9% FLUSH 10 ML FLUSH IV FLUSH SCH (09:21)
[2017-05-23] MEDS: LISINOPRIL 20 MG TAB PO SCH (09:21)
[2017-05-23] MEDS: GABAPENTIN 300 MG CAP PO SCH (09:21)
[2017-05-23] MEDS: FUROSEMIDE 40 MG TAB PO SCH (09:22)
[2017-05-23] MEDS: amLODIPine BESYLATE 5 MG TAB PO SCH (09:22)
[2017-05-23] MEDS: DORZOLAMIDE/TIMOLOL OPTH SOLN 10 ML BTL EACH EYE SCH (09:40)
--- NOTE | 2017-05-23 10:23 | MB ---
cc: SHERLYN CARRASQUILLO M.D. DATE OF CONSULTATION: 05/22/2017 DATE OF 1945 REASON FOR CONSULTATION Abnormal cardiac enzymes, chest pain. HISTORY OF PRESENT ILLNESS The patient is a very pleasant 71-year-old -Algerian male, followed in the [place] system, with a history of multiple medical problems including aortic stenosis status post aortic valve replacement 2011, peripheral vascular disease, possible paroxysmal atrial fibrillation, diabetes who presented to the hospital with chest discomfort. Two days ago, while sitting, he developed a moderate episode of substernal chest discomfort described as "pressure" without associated shortness of breath, nausea or diaphoresis. The chest discomfort lasted about 15-20 minutes. Yesterday, he had recurrence of the chest discomfort again lasting about 15 minutes. He came to the emergency department in [place] where cardiac enzymes were found to be abnormal. Today, he has had no further chest discomfort. He denies pleurisy, lightheadedness, syncope, near-syncope, palpitations, paroxysmal nocturnal dyspnea, fevers, cough. PAST MEDICAL HISTORY 1. Hypertension. 2. Hyperlipidemia. 3. Diabetes. 4. COPD. 5. History of left-sided CVA. 6. Gout. 7. Benign prostatic hypertrophy. 8. Severe aortic stenosis status post bovine pericardial aortic valve replacement 08/19/2012 at which time he also underwent ascending aortic endarterectomy. 9. Chronic anemia. 10. Bilateral pulmonary emboli 09/13/2012. 11. Peripheral vascular disease status post left lolyc-cnc-txem amputation approximately May 2014, status post right yqdgm-gqk-yhpe amputation 04/23/2015. 12. History of severe cardiomyopathy initially diagnosed apparently 2012. His last available echo 05/24/2015 showed ejection fraction of 50-55%. 13. Poorly documented history of paroxysmal atrial fibrillation, possibly April 2015. 14. History of [employer] AICD implant. According to the patient because of a fractured wire, he underwent placement of a subcutaneous [employer] AICD about two years ago. MEDICATIONS His cardiac medications at home: 1. Warfarin 7.5 mg daily. 2. Terazosin 2 mg q. h.s. 3. Potassium chloride 10 mEq daily. 4. Metoprolol succinate 50 mg daily. 5. Lisinopril 20 mg daily. 6. Furosemide 40 mg daily. 7. Clonidine 0.2 mg q.h.s. 8. Atorvastatin 80 mg q.h.s. 9. Amlodipine 5 mg daily. ALLERGIES NO KNOWN DRUG ALLERGIES. FAMILY HISTORY Noncontributory. SOCIAL HISTORY The patient quit smoking in 1982. He denies alcohol abuse. REVIEW OF SYSTEMS Review of systems as in the history of present illness otherwise negative or noncontributory. He also denies headache, abdominal pain, melena, dyspepsia, bright red blood per rectum. PHYSICAL EXAMINATION VITAL SIGNS: On physical examination, his blood pressure 150/60 with a pulse of 73, respirations 16. GENERAL: In general he is a well-developed, well-nourished -Algerian male in no acute distress. HEAD, EYES, EARS, NOSE, AND THROAT: On HEENT examination jugular venous pressure is hard to assess; it appears to be normal. Carotid pulses are 2+ bilaterally and without bruits. CHEST: Examination of the chest reveals clear lung peres anteriorly. CARDIAC: On cardiac examination he has a regular rhythm and rate with a grade 1/6 systolic murmur heard at the left lower sternal border. No definite gallop is audible. ABDOMEN On abdominal examination he has a soft, nontender abdomen. Bowel sounds are present. There is no definite hepatosplenomegaly. EXTREMITIES: Examination of extremities reveals no clubbing. He is status post bilateral zejcw-gwl-ofry amputation. LABORATORY DATA Laboratory data includes INR 3.3, potassium 4.0, BUN 37, creatinine 1.20, troponin 0.24, WBC 3.3, hemoglobin 8.1, platelets 133. IMAGING STUDIES Chest x-ray Shows no acute disease. EKG shows sinus rhythm, left bundle-branch block. IMPRESSION Symptoms suggestive of unstable angina, slightly abnormal troponin levels in this 71-year-old -Algerian male with a history of multiple medical problems including diabetes, COPD, CVA, peripheral vascular disease, aortic valve replacement, bilateral pulmonary emboli, AICD implant, possible paroxysmal atrial fibrillation. Indeed, his chest pains the last two days are suggestive of angina, at rest. Troponin levels are slightly abnormal. EKG is nondiagnostic due to left bundle-branch block. He did have a nuclear stress test 05/24/2015 which apparently was normal. According to previous records, he did have some coronary disease demonstrated on preoperative cardiac catheterization prior to his aortic valve replacement. Overall, in light of his abnormal cardiac enzymes and his symptoms, I have recommended he undergo cardiac catheterization with possible percutaneous coronary intervention. The nature of these procedures and potential risks including but not limited to , myocardial infarction, stroke, arrhythmia, bleeding, infection, renal failure have been outlined to the patient. He agrees to proceed. RECOMMENDATIONS 1. Hold warfarin. 2. Cardiac catheterization tomorrow as long as his INR is less than approximately 2.7. 3. Check a 2-D echo to reassess his left ventricular function. 4. Continue his usual home cardiac medications except for warfarin. Sherlyn Carrasquillo MD GHGreg/TAMAR /3:29 PM /10:04 AM MTDMichael
[2017-05-23 10:38] LABS: INTERNATIONAL NORMALIZED RATIO 1.7 RATIO; PROTHROMBIN TIME - PATIENT 19.5 SEC (9.8-11.6)
[2017-05-23] MEDS ORDERED: HEPARIN-NS/PF INJ 500 ML ONE (11:14)
[2017-05-23] MEDS ORDERED: MIDAZOLAM HCL 2 MG/2 ML VIAL ONE (11:16)
--- NOTE | 2017-05-23 12:01 | CATHPROC ---
[facility] HIS Report Study Information Study Number Admission Scheduled Start Study Start [id number] May 22 2017 10:54AM 05/23/2017 May 23 2017 9:45AM [place] Service Cardiac Catheterization Admit Source Facility Department Emergency department [facility] - Shutdown Planner Physician and Clinical Staff Initial Nicho Johnson Joint Cutter Machine Surendra Canas,JOSE Recorder Birgit Chinchilla,RT(R) Scrub Shen Chau RCIS(BS) Procedures Performed Procedure Location (Site) Vessel Name Coronary Angiograms LCA Left Coronary Coronary Angiograms RCA Right Coronary L Heart Cath Wire insertion Fem Art (right) Femoral Art Equipment Time Linotype Machinist Apprentice Description Size Mfg Part Number Used/Scraped TRANSDUCER, TRUWAVE [id number] 11:41 KELLER BOOTHE * Used W/STOCKCOCK *[id number] 11:49 CARDIVA MEDICAL VASCADE, FR6 CLOSURE SYSTEM FR 6\7 Used *[id number] 11:50 CARD[employer] MEDICAL VASCADE, FR6 CLOSURE SYSTEM FR 6\7 Used *[id number] *[id number] *[id number] *[id number] [id number] *[id number] 11:41 MEDLINE INDUSTRIES PACK, CCL CUSTOM * Used *[id number] 11:41 MEDLINE PACER PEN, SKIN DUAL W/ RULER * Used *[id number] 11:41 Chartboost MEDICAL SHEATH, FR6.5 PRELUDE 11CM FR 6.5 038ACT Used *[id number] 11:41 [employer] MEDICAL WIRE, 3MMJ .035 180CM 180CM Used *[id number] 11:41 NAMIC MANIFOLD, 4 PORT * Used *[id number] 11:41 NYCOMED OMNIPAQUE, 350 MG, 150ML 150ML [id number] Used 11:52 [employer]COMED OMNIPAQUE, 350 MG, 150ML 150ML [id number] Used [id number] 11:41 [employer]RIOLA MEDICAL BLANKET,WARM AIR CCL * Used *[id number] History: Current Medications Medication Dosage/Unit Route Frequency Last Date/Time Taken ASA Statins (any) NORVASC CLONIDINE Magnesium LISINOPRIL Glucophage Coumadin History: Allergies Allergy Reaction No Known Allergies History: Risk Factors Family History of Hypertension Dyslipidemia Previous [place] Previous Heart Failure Premature CAD Yes Yes No No Yes Prior Valve Prior PCI Prior CABG Surgery Yes No No Cerebrovascular Peripheral Artery Chronic Lung On Dialysis Diabetes Diabetes Therapy Disease Disease Disease No Yes Yes Yes Yes Oral History: Stress Tests Stress or Imaging Studies Performed No History: Other Current Smoker No Labs Hgb (g/dl) Hct (%) RBC (MIL/MM3) WBC (l/cumm) Platelets (thousands) 11.60-17.00 35.00-51.00 4.00-5.90 4.00-11.00 150.00-450.00 8.1 26 2.2 3.3 133 Glucose (mg/dl) BUN (mg/dl) Creatinine (mg/dl) BUN:Creatinine (1:x) 74.00-106.00 7.00-18.00 0.50-1.30 10.00-20.00 137 37 1.2 30.8 Na (meq/l) K (meq/l) Cl (meq/l) Ca (mg/dl) 136.00-145.00 3.50-5.10 98.00-107.00 8.50-10.10 140 4 108 8.4 PT (sec) PTT (sec) INR (PTT:PT) 9.80-11.60 24.30-30.10 0.90-1.10 19.5 46.7 1.7 Troponin I (ng/ml) CPK (u/l) CPK-MB (ng/ML) 0.02-0.05 26.00-308.00 0.50-3.60 0.24 222 3.8 Medication Medication Total Dose (Bolus/Oral) Medication Total Dosage/Unit 1% XYLOCAINE 20 mL VERSED 2 mg Medications (Bolus/Oral) Medication Time Given Dosage/Unit Administered By Reason VERSED 05/23/2017 11:37:30 AM 2 mg Surendra Canas 2 mg VERSED given in lab by Surendra Canas RN in Right Forearm via Peripheral IV. 1% XYLOCAINE 05/23/2017 11:38:37 AM 20 mL Nicho Bonds 20 mL 1% XYLOCAINE given in lab by Nicho Bonds in Right Groin via Subcutaneous. Medication (Drip) Medication Time Given Dosage/Unit Concentration/Unit Diluent (ml) Solution IV Solutions 05/23/2017 11:25:20 AM 0 mL (IV) NaCl .9 Patient arrived on IV Solutions in Right Forearm via Peripheral IV. Pump/Drip Flow = 20 ml/hr using N aCl .9. Initial Case Assessment Cardiovascular HR Rhythm NIBP Chest Pain 58 irreg 158/51 0 Edema Present Skin color Skin None Normal Warm Circulatory - Right Pulses Femoral 2 Scale (0,1,2,3,4,d) Circulatory - Left Pulses Femoral 2 Scale (0,1,2,3,4,d) Circulatory - Lower Extremities Color Lower Right Color Lower Left Normal Normal Neurological State Oriented to time-place- Alert Moves all extremities person Respiration - General Respiration Rate SpO2 (%) (B/min) 20 98 Final Case Assessment Cardiovascular HR Rhythm NIBP 73 irreg 152/41 Edema Present Skin color Skin None Normal Warm Circulatory - Right Pulses Femoral 2 Scale (0,1,2,3,4,d) Circulatory - Left Pulses Femoral 2 Scale (0,1,2,3,4,d) Neurological State Oriented to time-place- Alert Moves all extremities person Respiration - General Respiration Rate SpO2 (%) (B/min) 20 98 Chronological Log Time Study Chronological Log 11:09:09 Patient arrived via Bed. 11:09:10 Patient Name, D.O.B, / Armband Verified By R.N. 11:09:15 Consent signed by the physician and the patient and verified by the Shutdown Planner staff. 11:09:16 Pre-op and post- op instructions given; patient acknowledges understanding of instructions. 11:09:20 Patient has been NPO for Less than 6Hrs. 11:09:22 Skin Breakdown-none 11:09:33 Patient Warmer Placed on the Table. 11:09:40 A # 18 IV was noted in the Forearm (right). Grade = 0 11:09:42 History and physical on the chart or being dictated. Assessment: Initial Case, HR=58 BPM, Rhythm=irreg, MHIY=051/51 mmhg, Chest Pain=0, Edema=None, Color=Normal, Skin = Warm Right Pulses: Femoral=2 Left Pulses: Femoral=2 11:09:43 Lower Right Extremities: Color=Normal Lower Left Extremities: Color=Normal Neurological: State=Alert, Ox3, BARBOSA Respiration: Resp=20 B/min, SpO2=98 % Vitals capture started with the following parameters, Patient=Adult, Interval=5 min, Initial Pr dqtzys=474 mmHg, 11:13:01 Deflation Rate=5 mmHg, Cuff placed on Left Arm 11:13:05 Reference ECG taken 11:14:32 HR=59 bpm, FMIN=397/52 mmhg, SpO2=99.0 %, Resp=15 B/min, Pain=0, Mary=10, Maria=2 11:18:54 HR=64 bpm, ATZX=781/46 mmhg, SpO2=98.0 %, Resp=19 B/min, Pain=0, Mary=10, Maria=2 11:24:28 HR=59 bpm, XEWW=386/51 mmhg, SpO2=98.0 %, Resp=20 B/min, Pain=0, Mary=10, Maria=2 11:25:20 Patient arrived on IV Solutions in Right Forearm via Peripheral IV. Pump/Drip Flow = 20 ml/ hr using NaCl .9. 11:27:38 History and physical on the chart or being dictated. 11:27:51 Bilateral groins prepped with 2% chlorhexidine, and with a 3 min. waiting time. 11:27:55 MD paged 11:28:50 HR=54 bpm, GPRR=346/55 mmhg, SpO2=98.0 %, Resp=17 B/min, Pain=0, Mary=10, Maria=2 11:33:53 HR=59 bpm, ESXD=817/44 mmhg, SpO2=98.0 %, Resp=17 B/min, Pain=0, Mary=10, Maria=2 11:34:51 Pressure channel 1 zeroed. 11:35:20 MD arrived. 11:37:30 2 mg VERSED given in lab by Surendra Canas, RN in Right Forearm via Peripheral IV. Time Out. Correct patient, correct procedure,correct physician, ,power injector not loaded with contrast with surgical 11:38:00 team present. Time Out Concurred by MD, individual staff and SUPERVISOR PLASTERING in procedure 11:38:02 Case Start 11:38:31 Verbal Stimulation=2 Physical Stimulation=2 Airway=2 Respiration=2 TOTAL=8. (0=absent, 1=li mited, 2=present) 11:38:37 20 mL 1% XYLOCAINE given in lab by Nicho Bonds in Right Groin via Subcutaneous. 11:38:52 HR=65 bpm, JOZT=190/48 mmhg, SpO2=97.0 %, Resp=15 B/min, Pain=0, Mary=10, Maria=2 11:40:41 Access site was Right Femoral Artery. 11:40:45 A wire was inserted via Fem Art (right). 11:40:48 A SHEATH, FR6.5 PRELUDE 11CM FR 6.5 was advanced into the Fem Art (right) using the Percuta neous technique. A JL 4.0 INFINITI CATHETER FR 6 was advanced over a wire. OMNIPAQUE, 350 MG, 150ML 150ML was us ed for 11:41:12 injections. Recorded Pressure: Ao, HR=64, Condition=Condition 1 11:41:53 (Aorta) Ao 156/47/82 11:42:04 The LCA was injected and visualized at various angles. OMNIPAQUE, 350 MG, 150ML 150ML used . 11:43:53 HR=69 bpm, PLHO=714/41 mmhg, SpO2=96.0 %, Resp=19 B/min, Pain=0, Mary=10, Mraia=2 11:43:53 Catheter was removed A 3DRC INFINITI CATHETER FR 6 was advanced over a wire. OMNIPAQUE, 350 MG, 150ML 150ML was used for 11:44:17 injections. 11:45:39 The RCA was injected and visualized at various angles. OMNIPAQUE, 350 MG, 150ML 150ML used . 11:46:01 Catheter was removed A MPA-2 INFINITI CATHETER FR 6 was advanced over a wire. OMNIPAQUE, 350 MG, 150ML 150ML was use d for 11:46:09 injections. 11:46:40 Catheter was removed 11:47:28 An injection in the Fem Art (right) was made through the SHEATH, FR6.5 PRELUDE 11CM FR 6.5. Assessment: Final Case, HR=73 BPM, Rhythm=irreg, XVNR=822/41 mmhg, Edema=None, Color=Normal, Sk in = Warm Right Pulses: Femoral=2 11:47:37 Left Pulses: Femoral=2 Neurological: State=Alert, Ox3, BARBOSA Respiration: Resp=20 B/min, SpO2=98 % 11:48:11 Catheter(s) removed without difficulty 11:48:15 VASCADE, FR6 CLOSURE SYSTEM FR 6\7 placement in the Fem Art (right) 11:48:52 HR=70 bpm, MIBM=122/49 mmhg, SpO2=98.0 %, Resp=20 B/min, Pain=0, Mary=10, Maria=2 11:50:55 Case End 11:52:01 Sterile dressing applied to site 11:52:02 No case complications noted. 11:52:04 Cine recording checked. 11:52:12 Bedside Report will be given. 11:52:14 Contrast Scanned 11:52:30 Verbal Stimulation=2 Physical Stimulation=2 Airway=2 Respiration=2 TOTAL=8. (0=absent, 1=l imited, 2=present) 11:52:39 A Left Heart Cath was performed. 11:52:45 Clinical correlaton risk stratification. 11:53:47 HR=71 bpm, GHBG=706/79 mmhg, SpO2=98.0 %, Resp=20 B/min, Pain=0, Mary=10, Maria=2 End Study - Contrast Media Used In Study Contrast Total Opened (mL) Total Used (mL) Total Wasted (mL) Omnipaque 90 90 0 End Study - Maximum Contrast Load Max Contrast Load (mL) 377.1 End Study - Radiation Exposure Fluoro Time (minutes) 2.0 End Study - Sheaths Sheaths Pulled By Sheath Hold Time (min) Nicho Bonds End Study - Patient Disposition Complications Transferred To No Regular Bed
--- NOTE | 2017-05-23 12:06 | PD.CARD.PN ---
Subjective Subjective Remarks Brief chest discomfort last night, none since. No dyspnea, dizziness, palpitations. Slept well. Objective Medications Item Value Date Time Warfarin Sodium 5 mg 05/23/17 1600 (Coumadin) DAILY@1600/PO Potassium Chloride 10 meq 05/23/17 0900 (KCl) DAILY/PO 05/23/17920 Atorvastatin 80 mg 05/22/172099 Calcium HS/PO 05/22/172152 (Lipitor) Clonidine 0.2 mg 05/22/172099 (Catapres) HS/PO 05/22/172152 Amlodipine 5 mg 05/22/17 1115 Besylate DAILY/PO 05/23/17921 (Norvasc) Furosemide 40 mg 05/22/17 1115 (Lasix) DAILY/PO 05/23/17921 Lisinopril 20 mg 05/22/17 111 (Prinivil) DAILY/PO 05/23/17920 Metoprolol 50 mg 05/22/17 1115 Succinate DAILY/PO 05/23/17920 (Toprol Xl) Vital Signs / I&O Vital Signs Date Time Temp Pulse Resp B/P (MAP) Pulse Ox O2 Delivery O2 Flow Rate FiO2 05/23/17 09:20 62 05/23/17 07:43 97.7 65 18 157/87 (110) 97 05/23/17 03:39 98.6 61 20 121/49 (73) 97 05/22/17 23:42 98.7 70 18 137/63 (87) 96 05/22/17 23:00 81 05/22/17 22:18 96 05/22/17 19:45 98.2 68 18 194/78 (116) 96 05/22/17 18:55 69 05/22/17 15:02 98.4 73 16 150/60 (90) 96 05/22/17 12:30 98.1 70 16 186/74 (111) 98 I/O 05/22/17 05/22/17 05/22/17 05/23/17 05/23/17 05/23/17 07:00 15:00 23:00 07:00 15:00 23:00 Output Total 1200 ml Balance -1200 ml Output Urine Total 1200 ml # Voids 2 Physical Exam GENERAL: Well developed, well nourished. No acute distress. HEENT: Jugular venous pressure is normal. CHEST: Lungs clear to auscultation bilaterally. Unlabored respiratory effort. CARDIAC: Regular rate and rhythm without S3, S4. I/ systolic murmur lower left sternal border. ABDOMEN: Soft, nontender, no hepatosplenomegaly. Bowel sounds present. EXTREMITIES: Status post bilateral AKA. Laboratory Laboratory Tests Test 05/23/17 09:30 Prothrombin Time 19.5 SEC Prothromb Time International Ratio 1.7 RATIO Assessment and Plan Problem List: (1) Non-ST elevated myocardial infarction ICD Codes: I21.4 - Non-ST elevation (NSTEMI) myocardial infarction Status: Acute Plan: No further angina. No definite CHF. Cath today shows no high grade CAD except very small totally occluded third obtuse marginal. REC medical therapy continue usual home cardiac medications, add Imdur 60 mg qd OK to discharge late today from a cardiac standpoint, f/u with [place] game designer/creative director (2) Non-ischemic cardiomyopathy ICD Codes: I42.8 - Other cardiomyopathies Status: Resolved Plan: Stable. Compensated. Normal ejection fractions on most recent echo evaluations. Continue same therapy. (3) Paroxysmal atrial fibrillation ICD Codes: I48.0 - Paroxysmal atrial fibrillation Status: Chronic Plan: Poorly documented history of atrial fib possibly 04/2015. No definite evidence for recurrence. Recommend continue anticoagulation therapy with warfarin. (4) H/O aortic valve replacement ICD Codes: Z95.2 - H/O aortic valve replacement Status: Chronic Plan: Stable. Normal AVR function by exam. (5) Hypertension ICD Codes: I10 - Hypertension Status: Chronic Plan: Fluctuating BP's. Recommend outpatient monitoring. Code Status full code Discussed Condition With patient Problem Qualifiers (1) Hypertension: Qualified Codes: I10 - Essential (primary) hypertension Nicho Bonds MD May 23, 2017 12:06
[2017-05-23] MEDS ORDERED: ISOSORBIDE MONONITRATE 60 MG TAB PO SCH (12:15)
[2017-05-23] MEDS ORDERED: IOHEXOL 350 MG/ML 100 ML BTL (for Cath Lab) OTHER ONE (12:30)
[2017-05-23] MEDS ORDERED: ISOS60TA PO (15:35)
--- NOTE | 2017-05-23 15:35 | HHI.PR ---
Subjective Remarks Patient reports feeling better today. No chest pain or SOB. Objective Vitals Vital Signs Date Time Temp Pulse Resp B/P (MAP) Pulse Ox O2 Delivery O2 Flow Rate FiO2 05/23/17 12:10 98 Room Air 05/23/17 09:20 62 05/23/17 07:43 97.7 65 18 157/87 (110) 97 05/23/17 03:39 98.6 61 20 121/49 (73) 97 05/22/17 23:42 98.7 70 18 137/63 (87) 96 05/22/17 23:00 81 05/22/17 22:18 96 05/22/17 19:45 98.2 68 18 194/78 (116) 96 05/22/17 18:55 69 I/O 05/22/17 05/22/17 05/22/17 05/23/17 05/23/17 05/23/17 07:00 15:00 23:00 07:00 15:00 23:00 Output Total 1200 ml Balance -1200 ml Output Urine Total 1200 ml # Voids 2 Result Diagram: 05/21/17183905/21/171839 Imaging Last Impressions Chest X-Ray 05/21/171842 Signed Impressions: Service Date/Time: Sunday, May 21, 2017 18:57 - CONCLUSION: No acute disease. Tawanda Cordero MD Objective Remarks GENERAL: No acute distress CARDIOVASCULAR: Regular rate and rhythm. RESPIRATORY: No accessory muscle use. Clear to auscultation. Breath sounds equal bilaterally. GASTROINTESTINAL: Abdomen soft, non-tender, nondistended. Hepatic and splenic margins not palpable. MUSCULOSKELETAL: Extremities without clubbing, cyanosis, or edema. No obvious deformities. NEUROLOGICAL: Awake and alert. Normal speech. PSYCHIATRIC: Appropriate mood and affect; insight and judgment normal. A/P Problem List: (1) Non-ST elevated myocardial infarction ICD Code: I21.4 - Non-ST elevation (NSTEMI) myocardial infarction Status: Acute (2) Chest pain ICD Code: R07.9 - Chest pain Status: Acute Assessment and Plan Chest pain with elevated troponin, non-ST elevated myocardial infarction Patient was followed by Cardiology. Cath showed no high grade CAD except very small totally occluded third obtuse marginal. Patient to continued on beta cindy, BUDDY inhibitor, statin, Norvasc. Imdur added. Paroxysmal afib: Aspirin and anticoagulation with Coumadin INR 3.3 Diabetes Accu-Cheks with sliding scale insulin Hypertension, hyperlipidemia, coronary artery disease, cardiomyopathy, history of CVA, history TIA, peripheral*disease Home medications have been continued Discharge home in good condition diet: Heart healthy Activity: regular Meds: Per med rec Follow up with : PCP and Cardiology. Problem Qualifiers (1) Chest pain: Qualified Codes: R07.9 - Chest pain, unspecified Summer Chowdary MD May 23, 2017 15:35
--- NOTE | 2017-05-23 15:36 | HHI.DCPOC ---
Discharge Care Plan Diagnosis: (1) Non-ST elevated myocardial infarction (2) Hypertension (3) Chest pain (4) DM type 2 (diabetes mellitus, type 2) Goals to Promote Your Health * To prevent worsening of your condition and complications * To maintain your health at the optimal level Directions to Meet Your Goals Take your medications as prescribed Follow your dietary instruction Follow activity as directed Keep your appointments as scheduled Take your immunizations and boosters as scheduled If your symptoms worsen call your PCP, if no PCP go to Urgent Care Center or Emergency Room Smoking is Dangerous to Your Health. Avoid second hand smoke Call the 24-hour hour crisis hotline for domestic abuse at Summer Chodwary MD May 23, 2017 15:36
[2017-05-23] MEDS ORDERED: WARFARIN SOD 5 MG TAB PO SCH (16:00)
--- NOTE | 2017-05-23 16:05 | MA ---
cc: RYAN CARRASQUILLO DATE 05/23/2017 PROCEDURE Selective coronary angiography PROCEDURE NOTE The patient brought to the cardiac catheterization laboratory in a fasting state after having signed informed consent. The right groin was prepped and draped as per policy and anesthetized with 1% lidocaine. Arterial access was obtained via the right femoral artery and a 6-Slovak sheath placed. Coronary arteriography was performed using 6-Slovak Ros left 4.0 and right progressive catheters. Left ventriculography was not done. The patient has a bioprosthetic aortic valve. There were no apparent immediate complications. His arteriotomy site was closed with Vascade with the achievement of good hemostasis. HEMODYNAMIC RESULTS Aorta 156/47 with a mean of 82. CORONARY ARTERIOGRAPHY The left main is normal. The left anterior descending is a fairly large vessel giving rise to a small to medium size diagonal which has approximately 50% ostial stenosis. The proximal LAD has minimal luminal irregularities. The mid to distal LAD is normal. The left circumflex is a fairly large dominant vessel with minimal disease in its proximal and midportions. It gives rise to a very high first obtuse marginal which has diffuse ostial to proximal disease resulting in up to 40% stenosis. There is a medium-sized second obtuse marginal which has 15% stenosis proximally. There is a very small third obtuse marginal which appears to be subtotally occluded. The diameter of this particular obtuse marginal is very small. The right coronary artery is a small nondominant vessel with possibly up to 50% mid stenosis. LEFT VENTRICULOGRAPHY Not done. CONCLUSIONS 1. Subtotally occluded very small third obtuse marginal, otherwise no definite high-grade stenosis. 2. Left dominant system. MD YONG Blum/COLIN /11:54 AM /3:58 PM FLAQUITA
--- NOTE | 2017-05-23 16:07 | ECHRPT ---
Indication: CARDIOMYOPATHY CONCLUSIONS Normal left ventricular size. The left ventricular systolic function is low normal with an estimated ejection fraction in the range of 50-55%. No definite regional wall motion abnormalities are present. Mild concentric left ventricular hypertrophy. The left atrial size is [id number] dilated. There is a pacemaker wire present in the right atrial cavity. The right atrial size is mildly dilated. Moderate calcification of the mitral valve leaflets. Moderate mitral annular calcification. Mild mitral valve stenosis. Mitral valve mean gradient is 4 mmHg. The mitral valve area by Pressure Halftime Method is 1.9 square cm. The aortic valve is not well visualized. 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 Structurally normal tricuspid valve. There is mild tricuspid valve regurgitation. BP: 194 / 78 HR: 81 Rhythm: Sinus MEASUREMENTS (Male / Female) Normal Values Technical Quality:Technically difficult study 2D ECHO LV Diastolic Diameter PLAX 4.7 cm 4.2 - 5.9 / 3.9 - 5.3 cm LV Systolic Diameter PLAX 4.2 cm IVS Diastolic Thickness 1.3 cm 0.6 - 1.0 / 0.6 - 0.9 cm LVPW Diastolic Thickness 1.3 cm 0.6 - 1.0 / 0.6 - 0.9 cm LV Relative Wall Thickness 0.5 LVOT Diameter 1.7 cm Aortic Root Diameter 3.6 cm LA Systolic Diameter LX 3.5 cm 3.0 - 4.0 / 2.7 - 3.8 cm DOPPLER AV Peak Velocity 272.0 cm/s AV Peak Gradient 29.6 mmHg AV Mean Gradient 16.0 mmHg AV Velocity Time Integral 62.4 cm LVOT Peak Velocity 106.0 cm/s LVOT Peak Gradient 4.5 mmHg LVOT Velocity Time Integral 24.5 cm LVOT Cardiac Index 2138.5 cm/minm AV Area Cont Eq vti 0.9 cm AV Area Cont Eq pk 0.9 cm MV Peak Velocity 167.0 cm/s MV Peak Gradient 11.2 mmHg MV Mean Velocity 88.3 cm/s MV Mean Gradient 4.0 mmHg MV Area PHT 1.8 cm Mitral E Point Velocity 96.3 cm/s Mitral A Point Velocity 150.0 cm/s Mitral E to A Ratio 0.6 LV E' Lateral Velocity 8.1 cm/s Mitral E to LV E' Lateral Ratio 11.9 LV E' Septal Velocity 4.2 cm/s Mitral E to LV E' Septal Ratio 22.9 TR Peak Velocity 274.0 cm/s TR Peak Gradient 30.0 mmHg PV Peak Velocity 86.5 cm/s PV Peak Gradient 3.0 mmHg FINDINGS LEFT VENTRICLE Normal left ventricular size. The left ventricular systolic function is low normal with an estimated ejection fraction in the range of 50-55%. No definite regional wall motion abnormalities are present. Mild concentric left ventricular hypertrophy. RIGHT VENTRICLE Normal right ventricular size and systolic function. LEFT ATRIUM The left atrial size is [id number] dilated. RIGHT ATRIUM There is a pacemaker wire present in the right atrial cavity. The right atrial size is mildly dilated. ATRIAL SEPTUM The interatrial septum not well visualized. AORTA The aortic root and proximal ascending aorta are not well visualized. MITRAL VALVE Moderate calcification of the mitral valve leaflets. Moderate mitral annular calcification. Mild mitral valve stenosis. Mitral valve mean gradient is 4 mmHg. The mitral valve area by Pressure Halftime Method is 1.9 square cm. AORTIC VALVE The aortic valve is not well visualized. 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 TRICUSPID VALVE Structurally normal tricuspid valve. There is mild tricuspid valve regurgitation. PULMONARY VALVE The pulmonary valve is not well visualized. VESSELS The inferior vena cava was not well visualized. PERICARDIUM No pericardial effusion. Nicho Bonds MD (Electronically Signed) Final Date:23 May 2017 16:06
== END 2017-05-23 18:30 | disposition home or self-care (01) | DRG 281 ==
LOC: PHED 18:10 → PHEDA 20:48 → OBSVTOIN 05-22 10:54 → NEPGCP 05-22 12:26 → HCIS 05-23 11:52
PROVIDERS: ADMIT Family Medicine; ATTEND Family Medicine
PROC: B2111ZZ Fluoroscopy of Multiple Coronary Arteries using Low Osmolar Contrast (ICD-10-PCS; principal; 2017-05-23 11:00)
DX: I21.4 Non-ST elevation (NSTEMI) myocardial infarction (principal); D61.818 Other pancytopenia; I42.8 Other cardiomyopathies; I11.0 Hypertensive heart disease with heart failure; I50.22 Chronic systolic (congestive) heart failure; E11.51 Type 2 diabetes mellitus with diabetic peripheral angiopathy without gangrene; E78.5 Hyperlipidemia, unspecified; M19.90 Unspecified osteoarthritis, unspecified site; J44.9 Chronic obstructive pulmonary disease, unspecified; E11.319 Type 2 diabetes mellitus with unspecified diabetic retinopathy without macular edema; N40.0 Benign prostatic hyperplasia without lower urinary tract symptoms; M10.9 Gout, unspecified; F41.9 Anxiety disorder, unspecified; I48.0 Paroxysmal atrial fibrillation; I25.10 Atherosclerotic heart disease of native coronary artery without angina pectoris; Z79.01 Long term (current) use of anticoagulants; Z95.3 Presence of xenogenic heart valve; Z89.611 Acquired absence of right leg above knee; Z87.891 Personal history of nicotine dependence; Z79.84 Long term (current) use of oral hypoglycemic drugs; Z95.810 Presence of automatic (implantable) cardiac defibrillator; Z86.73 Personal history of transient ischemic attack (TIA), and cerebral infarction without residual deficits; Z89.612 Acquired absence of left leg above knee; Z86.711 Personal history of pulmonary embolism
CPT/HCPCS: 71010; 80053; 82550; 82552; 82948; 83690; 83735; 84484; 85007; 85027; 85610; 85730; 93005; 93306; 93454; C1760; C1769; C1893; G0269; G0378; J1644; J2250; J3430; J7030; Q9967